=== PATIENT | female | born 1980 | race Hispanic/Latino ===

== ENCOUNTER 2019-03-13 01:43 | Emergency (ER) | payer OTHER ==
[~2019-03-13] VITALS: Ht 175.3 cm; Wt 136.1 kg
--- OUTSIDE RECORDS SUMMARY | 2019-03-13 01:46 | XMS REPORT | Summary of Care ---
Author Author RICCARDO RUVALCABA Unknown Address Unknown Phone Unavailable Care Team Providers Care Food Preparation Worker Name Role Phone JOHNATHAN CONCEPCION, ANDRES CHENEY Unavailable Unavailable JOHNATHAN Valles, ANDRES Webb Unavailable Unavailable Unavailable Functional Status Name Dates Details Functional status health issues are not documented Status: Name Dates Details Cognitive status health issues are not documented Status: Problems Name Dates Details Elevated WBC count (288.60, D72.829) Status: Active Visit for screening mammogram (V76.12, Z12.31) Status: Active BMI 45.0-49.9, adult (V85.42, Z68.42) Status: Active Low back pain (724.2, M54.5) Status: Active Depression screening negative (V79.0, Z13.31) Status: Active Anxiety (300.00, F41.9) Status: Active Plantar fasciitis (728.71, M72.2) Status: Active Acute bronchitis (466.0, J20.9) Status: Active Lump or mass in breast (611.72, N63.0) Status: Active Menorrhagia (626.2, N92.0) Status: Active Encounter for routine gynecological examination with Papanicolaou smear of cervix (V72.31, Z01.419) Status: Active Medications Name Dates Details None - No Current Medications R.N. Active Allergies and Adverse Reactions Name Dates Details No Known Drug Allergies (Allergy) Status: Active Past Medical History Name Dates Details History of attention deficit disorder (V11.8, Z86.59) Status: Resolved History of Injury of lower leg (959.7, S89.90XA) Status: Resolved History of Mammogram Status: Resolved History of pharyngitis (V12.69, Z87.09) Status: Resolved History of Upper respiratory infection, acute (465.9, J06.9) Status: Resolved Personal history of urinary tract infection (V13.02, Z87.440) Status: Resolved Procedures Procedure Dates Details [QLH] CBC (INCLUDES DIFF/PLT) Date: 26-Oct-2018 History of Surgically Induced - By Dilation And Evacuation Completed Immunization Name Dates Details Immunizations not documented Family History Name Dates Details Family history of Parkinson Disease Comments: Family History Status: Active Name Dates Details Family history of arthritis (V17.7, Z82.61) Status: Active Family history of Parkinson's disease (V17.2, Z82.0) Status: Active Family history of alcoholism (V17.0, Z81.1) Status: Active Name Dates Details Family history of Asthma (V17.5) Status: Active Family history of COPD (chronic obstructive pulmonary disease) with acute bronchitis (491.22, J44.0) Status: Active Family history of essential hypertension (V17.49, Z82.49) Status: Active Social History Name Dates Details - Status: Name Dates Details Never smoker Vital Signs Date Test Result Details 13-Awf-[id number]:27 Physical Findings 6 Status: Comments: PHQ-9 Adult Depression Screening 16-Wne-921859:37 BP Systolic 129 mm[Hg] Status: Comments: Location: LUE; Position: Sitting BP Diastolic 83 mm[Hg] Status: Comments: Location: LUE; Position: Sitting Heart Rate 83 /min Status: 38-Lid-[id number]:36 BP Systolic 133 mm[Hg] Status: Comments: Location: LUE; Position: Sitting BP Diastolic 91 mm[Hg] Status: Comments: Location: LUE; Position: Sitting Heart Rate 82 /min Status: Height 69 in Status: Weight 328.0625 lb Status: Body Mass Index Calculated 48.45 kg/m2 Status: Body Surface Area Calculated 2.55 m2 Status: Temperature 97.7 f Status: Comments: Method: Temporal Respiration Rate 16 /min Status: Physical Findings 0 Status: Comments: Pain Scale 14-Idz-660725:29 Physical Findings 0 Status: Comments: Alcohol Screen - How many times in the past yr have you had 5 (for M) or 4 (for F) or 4 (for all > 65yrs) or more drinks in a day? Results Date Description Value Details [id number] [QH] LIPID PANEL WITH REFLEX TO DIRECT LDL CHOLESTEROL, TOTAL 193 mg/dl (Normal) Range: <200 HDL CHOLESTEROL 62 mg/dl (Normal) Range: >50 TRIGLYCERIDES 191 mg/dl (Above high threshold) Range: <150 LDL-CHOLESTEROL 100 {MG/DL__CAL} (Above high threshold) Comments: Reference range: <100 Desirable range <100 mg/dL for primary prevention; <70 mg/dL for patients with CHD or diabetic patients with > or=2 CHD risk factors. LDL-C is now calculated using the Aram calculation, which is a validated novel method providing better accuracy than the Friedewald equation in the estimation of LDL-C. Kennedy SS et al. MARYLU. 2013;310(65): 1777-9306 (http:/ /[employer]/faq/TLO203) CHOL/HDLC RATIO 3.1 {CALC} (Normal) Range: <5.0 NON HDL CHOLESTEROL 131 {MG/DL__CAL} (Above high threshold) Range: <130 Comments: For patients with diabetes plus 1 major ASCVD risk factor, treating to a non-HDL-C goal of <100 mg/dL (LDL-C of <70 mg/dL) is considered a therapeutic option. 30-Mvr-313169:24 [[facility]] CMP W/EGFR GLUCOSE 94 mg/dl (Normal) Range: 65-99 Comments: Fasting reference interval UREA NITROGEN (BUN) 12 mg/dl (Normal) Range: 7-25 CREATININE 0.64 mg/dl (Normal) Range: 0.50-1.10 eGFR NON- 112 {ML/MIN/1.7} (Normal) Range: > OR=60 eGFR 130 {ML/MIN/1.7} (Normal) Range: > OR=60 BUN/CREATININE RATIO NOT APPLICABLE {CALC} Range: 6-22 SODIUM 137 mmol/L (Normal) Range: 135-146 POTASSIUM 4.4 mmol/L (Normal) Range: 3.5-5.3 CHLORIDE 101 mmol/L (Normal) Range: 98-110 CARBON DIOXIDE 28 mmol/L (Normal) Range: 20-32 CALCIUM 9.2 mg/dl (Normal) Range: 8.6-10.2 PROTEIN, TOTAL 7.0 g/dl (Normal) Range: 6.1-8.1 ALBUMIN 4.2 g/dl (Normal) Range: 3.6-5.1 GLOBULIN 2.8 {G/DL__CALC} (Normal) Range: 1.9-3.7 ALBUMIN/GLOBULIN RATIO 1.5 {CALC} (Normal) Range: 1.0-2.5 BILIRUBIN, TOTAL 0.4 mg/dl (Normal) Range: 0.2-1.2 ALKALINE PHSPHATASE 77 u/l (Normal) Range: 33-115 AST 28 u/l (Normal) Range: 10-30 ALT 41 u/l (Above high threshold) Range: 6-29 82-[id number]:24 [QL] CBC (INCLUDES DIFF/PLT) WHITE BLOOD CELL COUNT 12.1 {Thousand/u} (Above high threshold) Range: 3.8-10.8 RED BLOOD CELL COUNT 4.54 {Million/uL} (Normal) Range: 3.80-5.10 HEMAGLOBIN 13.4 g/dl (Normal) Range: 11.7-15.5 HEMATOCRIT 39.5 % (Normal) Range: 35.0-45.0 MCV 87.0 fL (Normal) Range: 80.0-100.0 MCH 29.5 pg (Normal) Range: 27.0-33.0 MCHC 33.9 g/dl (Normal) Range: 32.0-36.0 RDW 12.5 % (Normal) Range: 11.0-15.0 PLATELET COUNT 245 {Thousand/u} (Normal) Range: 140-400 MPV 10.4 fL (Normal) Range: 7.5-12.5 ABSOLUTE NEUTROPHILS 9160 {cells/uL} (Above high threshold) Range: 3804-6623 ABSOLUTE LYMPHOCYTES 2118 {cells/uL} (Normal) Range: 850-3900 ABSOLUTE MONOCYTES 666 {cells/uL} (Normal) Range: 200-950 ABSOLUTE EOSINOPHILS 109 {cells/uL} (Normal) Range: 15-500 ABSOLUTE BASOPHILS 48 {cells/uL} (Normal) Range: 0-200 NEUTROPHILS 75.7 % (Normal) LYMPHOCYTES 17.5 % (Normal) MONOCYTES 5.5 % (Normal) EOSINOPHILS 0.9 % (Normal) BASOPHILS 0.4 % (Normal) 19-Cpl-118591:24 [[facility]] TSH, 3RD GENERATION W/REFLEX TO FT4 Comments: REPORT COMMENT:FASTING:YES TSH, 3RD GENERATION W/REFLEX TO FT4 2.00 {MIU/L} (Normal) Comments: Reference Range > or=20 Years 0.40-4.50 Ranges First trimester 0.26-2.66 Second trimester 0.55-2.73 Third trimester 0.43-2.91 Plan of Care Name Dates Details Planned Observations [QL] CBC (INCLUDES DIFF/PLT) On: 26-Nov-2018 Intent Planned Goals not documented Interventions Provided Discussion/Summary* liver counts are good, slight elevation on one marker, recommend recheck labs in 6 months to monitor this, cholesterol,sugar,kidney looks good. white count also slightly elevated, could indicate an acute illness, if no sx, recommend to repeat CBC in 1 month to monitor. Instructions Name Dates Details Instructions not documented Encounters Appointment; SELIN FATIMA NP Encounter Diagnosis: Problem not documented On: 24-Jul-2017 14:30 Appointment; WALI ZUÑIGA P.A. Encounter Diagnosis: Problem not documented On: 27-Jul-2017 12:00 Appointment; ZA HOOD M.D. Encounter Diagnosis: Problem not documented On: 14-Oct-2017 11:50 Appointment; RICCARDO RECINOS P.A. Encounter Diagnosis: Problem not documented On: 19-Oct-2018 10:30
[2019-03-13] MEDS ORDERED: BUPIVACAINE HCL 0.5% INJ 30 ML VIAL INJ ONE ×2 (02:00→03:30)
[2019-03-13] MEDS ORDERED: LIDOCAINE 1% W/EPINEPHRINE 20 ML VIAL INJ ONE (02:00)
[2019-03-13] MEDS ORDERED: TETANUS/DIPHTHERIA TOX ADULT 0.5 ML SYR IM ONE (02:00)
[2019-03-13] MEDS ORDERED: BUPIVACAINE HCL 0.5% 10ML MPF VIAL INJ ONE ×2 (02:06→03:37)
--- NOTE | 2019-03-13 02:50 | Diagnostic Imaging Report ---
Exam: Left lower leg, 4 views History: Laceration to lateral upper tib-fib area Comparison: None. Findings: There is normal bone mineralization. No acute, displaced fracture or dislocation. Joint spaces preserved. Approximately 9 cm linear soft tissue lucency in the lateral aspect at the level of the proximal tibia and fibula, likely representing the known laceration. Mild soft tissue swelling Impression: 1. Soft tissue laceration in the lateral aspect of the level of the proximal tibia and fibula without underlying bony abnormality. Signed by: Dr. Bora Barakat M.D. on 03/13/2019 2:43 AM
[2019-03-13] MEDS ORDERED: CIPROFLOXACIN 500 MG TAB ONE (04:37)
[2019-03-13] MEDS ORDERED: NEOSTIGMINE 1 MG/ML 10ML VIAL ONE (04:37)
[2019-03-13] MEDS ORDERED: CIPROFLOXACIN 500 MG TAB PO STA (04:37)
--- NOTE | 2019-03-13 04:40 | NUR ---
LACERATION REPAIR PERFORMED BY . SEE MD T SHEET FOR SUTURE REPAIR DETAILS. WOUND CLEANED C NS P REPAIR. ANTIBIOTIC OINTMENT APPLIED PER MD ORDERS. NONADHERING TELFA APPLIED TO WOUND, COVERED C 4X4 GAUZE AND ABD PAD AND SECURED C COBAN. PT PROVIDED C WOUND CARE INSTRUCTIONS AND EDUCATED ON NEED FOR FOLLOW-UP AND TO MONITOR FOR SIGNS AND SYMPTOMS OF WOUND INFECTION TO REPORT TO MD.
[2019-03-13] MEDS ORDERED: NEOMYCIN/POLYMYXIN/BACITRACIN 15 GM TUBE TOP ONE (04:45)
[2019-03-13 04:54] VITALS: BP 144/82
== END 2019-03-13 05:16 | disposition home or self-care (01) ==
LOC: ER 01:43
DX: S81.812A Laceration without foreign body, left lower leg, initial encounter (principal); W26.9XXA Contact with unspecified sharp object(s), initial encounter; Y93.19 Activity, other involving water and watercraft; Y92.89 Other specified places as the place of occurrence of the external cause; Z23 Encounter for immunization
CPT/HCPCS: 12035; 73590; 90471; 90714; 96372; 99283; J2710

== ENCOUNTER → 2025-02-23 | Day surgery (SDC) | payer OTHER ==
[~2025-02-23] MED LIST: LIDOCAINE HCL 2% LOCAL INJ 5 ML SDV VIAL INJ ONE; PROPOFOL IV EMULSION 50 ML IV ONE
[2025-02-23] MEDS: LACTATED RINGER'S 1,000 ML ONE (06:42)
[2025-02-23 08:28] VITALS: BP 144/88; PULSE 79; RESP 17; O2SAT 97
== END | disposition home or self-care (01) ==
LOC: OR 05:56
PROVIDERS: ATTEND Internal Medicine Gastroenterology
DX: Z12.11 Encounter for screening for malignant neoplasm of colon (principal); K64.8 Other hemorrhoids; Z78.9 Other specified health status; E66.01 Morbid (severe) obesity due to excess calories; Z68.41 Body mass index [BMI] 40.0-44.9, adult; Z71.3 Dietary counseling and surveillance
CPT/HCPCS: 45378; 81025; J2003; J2704; J7121